=== PATIENT | male | born 2000 | race African-American/Black ===

== ENCOUNTER 2020-06-07 03:54 | Emergency (ER) | payer MEDICAID ==
[~2020-06-07] VITALS: Ht 182.9 cm; Wt 134.1 kg
[2020-06-07 04:54] LABS: BASO % 0.3 % (0.0-2.0); EOS # 0.1 (0.0-0.7); GRAN # 4.2 (1.4-6.5); HEMATOCRIT 47.4 % (36.0-47.0); HEMOGLOBIN 15.5 g/dl (12.5-16.1); LYMPH % 44.6 % (20.0-51.0); MEAN CELL VOLUME 91 fl (80.0-95.0); MEAN CORPUSCULAR HEMOGLOBIN 30 pg (26.0-32.0); MEAN CORPUSCULAR HGB CONC 33 g/dl (33.0-37.0); MEAN PLATELET VOLUME 10.7 fl (7.4-10.4); MONO # 0.7 (0.1-0.6); MONO % 7.5 % (1.7-9.3); PLATELET COUNT 236 K/mm3 (130-400); RED BLOOD COUNT 5.21 M/mm3 (4.20-5.60); REDCELL DISTRIBUTION WIDTH-CV 12.9 % (11.5-14.5)
[2020-06-07 05:00] LABS: CALCIUM 9.2 mg/dL (8.4-10.2); CREATININE, serum 0.87 (0.66-1.25)
[2020-06-07 07:45] VITALS: BP 121/75; PULSE 71; TEMP 98.3
== END 2020-06-07 07:45 | disposition short-term general hospital (02) ==
LOC: COL.ER 03:54
PROVIDERS: Emergency Medicine
DX: T78.3XXA Angioneurotic edema, initial encounter (principal); F17.200 Nicotine dependence, unspecified, uncomplicated; Z20.822 Contact with and (suspected) exposure to COVID-19
CPT/HCPCS: J0171; J1100; J1200; J2930

== ENCOUNTER 2020-08-02 10:58 | Emergency (ER) | payer MEDICAID ==
[~2020-08-02] VITALS: Ht 182.9 cm; Wt 143.2 kg
[2020-08-02 11:09] VITALS: BP 137/80; TEMP 98
[2020-08-02 12:55] VITALS: PULSE 84
== END 2020-08-02 13:04 | disposition home or self-care (01) ==
LOC: COL.ER 10:58
DX: R07.9 Chest pain, unspecified (principal); E66.9 Obesity, unspecified
CPT/HCPCS: J1885